=== PATIENT | female | born 1995 | race Two or more races ===

== ENCOUNTER 2017-09-06 10:29 | Emergency (ER) | payer SELFPAY ==
[2017-09-06] MEDS: ONDANSETRON ODT 4 MG TAB.RAPDIS. PO (11:05)
[2017-09-06 11:29] LABS: INFLUENZA A PATIENT POSITIVE (NEGATIVE); INFLUENZA B PATIENT NEGATIVE (NEGATIVE); OBC FLU VALID
== END 2017-09-06 11:49 | disposition home or self-care (01) ==
LOC: ER 10:29
DX: J09.X2 Influenza due to identified novel influenza A virus with other respiratory manifestations (principal); E03.9 Hypothyroidism, unspecified
CPT/HCPCS: 87804; 87804-59; 99284; Q0162

== ENCOUNTER 2018-02-17 20:27 | Emergency (ER) | payer SELFPAY ==
[~2018-02-17] VITALS: Ht 152.4 cm; Wt 59.0 kg
[~2018-02-17 20:27] MED LIST: OSEL75CA PO
[2018-02-17 21:10] VITALS: BP 90/52
== END 2018-02-17 21:49 | disposition left against medical advice (07) ==
LOC: ER 20:27
DX: O26.891 Other specified pregnancy related conditions, first trimester (principal); R10.30 Lower abdominal pain, unspecified; Z3A.08 8 weeks gestation of pregnancy; Z53.21 Procedure and treatment not carried out due to patient leaving prior to being seen by health care provider